=== PATIENT | male | born 1995 | race Caucasian/White ===

== ENCOUNTER 2018-07-21 17:44 | Emergency (ER) | payer OTHER ==
[2018-07-21 18:12] VITALS: O2SAT 100
--- NOTE | 2018-07-21 18:38 | C.PDOC ---
History Of Present Illness 23 y/o M c no PMHx p/w chest pain x 2 days. Pain began while patient was taking calculus exam. Describes as L sided, pinching in character, nonradiating, associated with shortness of breath. Denies fever, nausea, vomiting, cough, hem optysis, diaphoresis, palpitaitons, leg swelling, leg pain, recent travel, hormone use, recent surgery or trauma, prior DVT or PE. Patient states chest pain lasted 3 hours before resolving. Then occurred today while patient was watching TV. No family history of MIs at young age. <Harsh Hebert - Last Filed: 07/21/18 18:35> <Harsh Hebert - Last Filed: 07/21/18 18:35> <Vashti Kay - Last Filed: 07/21/18 20:11> Time Seen by Provider: 07/21/18 18:29 Chief Complaint (Nursing): Chest Pain Past Medical History Vital Signs: Last Vital Signs Temp 98.5 F 07/21/18 17:47 Pulse 91 H 07/21/18 17:47 Resp 20 07/21/18 17:47 BP 153/89 H 07/21/18 17:47 Pulse Ox 100 07/21/18 17:47 Family History: States: No Known Family Hx - Social History Hx Alcohol Use: Yes Hx Substance Use: No - Immunization History Hx Tetanus Toxoid Vaccination: No Hx Influenza Vaccination: No <Harsh Hebert - Last Filed: 07/21/18 18:35> Vital Signs: Last Vital Signs Temp 98.5 F 07/21/18 17:47 Pulse 91 H 07/21/18 17:47 Resp 20 07/21/18 17:47 BP 153/89 H 07/21/18 17:47 Pulse Ox 100 07/21/18 18:40 <Vashti Kay - Last Filed: 07/21/18 20:11> Review Of Systems Except As Marked, All Systems Reviewed And Found Negative. Constitutional: Negative for: Fever Gastrointestinal: Negative for: Vomiting <Harsh Hebert - Last Filed: 07/21/18 18:35> Physical Exam - Physical Exam Additional Physical Exam Comments: Gen: NAD Head: NC/AT Eyes: PERRL ENT: MMM Neck: Supple Chest: No deformity or tenderness CV: Regular rate Lungs: CTA b/l Abd: Soft, NT Back: No CVA tenderness Skin: No rash Extremities: No edema Neuro: Alert <Harsh Hebert - Last Filed: 07/21/18 18:35> ED Course And Treatment O2 Sat by Pulse Oximetry: 100 <Harsh Hebert - Last Filed: 07/21/18 18:35> - Laboratory Results Result Diagrams: 07/21/18 18:50 07/21/18 18:50 <Vashti Kay - Last Filed: 07/21/18 20:11> Medical Decision Making Medical Decision Making: Patient without symptoms currently. PERC negative. EKG NSR 95 bpm, no ST elevations. Will send enzymes x 1 for this pain of over 24 hours duration. Will sign out to ED night team at change of shift. <EmileeHarsh Jacobsen - Last Filed: 07/21/18 18:35> Disposition <EmileeHarsh Jacobsen - Last Filed: 07/21/18 18:35> Counseled Patient/Family Regarding: Diagnosis, Need For Followup, Rx Given - Disposition Disposition Time: 20:10 - POA Present On Arrival: None <Vashti Kay - Last Filed: 07/21/18 20:11> - Disposition Referrals: [facility] [Outside] Disposition: HOME/ ROUTINE Condition: STABLE Additional Instructions: FOLLOW UP WITH YOUR DOCTOR IN 1-2 DAYS USE MEDICATION NEEDED RETURN TO ER IF SYMPTOMS WORSEN Prescriptions: Naproxen 375 mg PO BID PRN #20 tablet PRN Reason: pain Instructions: Chest Pain That Is Not Caused by the Heart (DC) Forms: [employer] (Setswana) Print Language: HAITIAN - Clinical Impression Clinical Impression: Chest wall pain Addendum Addendum: 07/21/18 20:10 Patient resting comfortably, in no acute distress. PO naprosyn given for mild pain. Explained to patient blood work, EKG, CXR are WNL. Patient instructed to follow up with PMD/clinic in 1-2 days. He understands he should return to ED if symptoms worsen. <Vashti Kay - Last Filed: 07/21/18 20:11>
[2018-07-21 18:55] LABS: BASO # 0.1 K/uL (0.0-0.2); BASO % 0.6 % (0.0-2.0); EOS # 0.3 K/uL (0.0-0.7); EOS % 2.1 % (0.0-4.0); LYMPH # 3.9 K/uL (1.0-4.3); LYMPH % 32.7 % (20.0-40.0); MEAN CELL VOLUME 81.9 fL (80.0-94.0); MEAN CORPUSCULAR HEMOGLOBIN 27.7 pg (27.0-31.0); MEAN CORPUSCULAR HGB CONC 33.9 g/dL (33.0-37.0); MEAN PLATELET VOLUME 7.1 fL (7.2-11.7); MONO # 0.6 K/uL (0.0-0.8); MONO % 5.3 % (0.0-10.0); NEUT # 7.2 K/uL (1.8-7.0); NEUT % 59.3 % (50.0-75.0); RBC 6.14 Mil/uL (4.40-5.90); RED CELL DISTRIBUTION WIDTH 12.9 % (11.5-14.5)
[2018-07-21 19:08] LABS: ALB/GLOB RATIO 1.5 (1.0-2.1); ALBUMIN 5.3 g/dL (3.5-5.0); ALT/SGPT 31 U/L (21-72); AST/SGOT 27 U/L (17-59); BLOOD UREA NITROGEN 16 mg/dL (9-20); CALCIUM 9.8 mg/dl (8.6-10.4); GFR NON-AFRICAN AMERICAN > 60
[2018-07-21 19:28] LABS: CK-MB 0.65 ng/mL (0.0-3.38)
[2018-07-21] MEDS ORDERED: Naproxen 550 mg Tab PO STA (20:05)
[2018-07-21] MEDS ORDERED: Naproxen 550 mg Tab PO ONE (20:19)
[2018-07-21 20:27] VITALS: BP 135/79; PULSE 88; RESP 17; TEMP 98.4
--- NOTE | 2018-07-22 15:38 | RAD ---
Date of service: 07/21/2018 HISTORY: L sided ches tpain COMPARISON: No prior. TECHNIQUE: Chest PA and lateral FINDINGS: LUNGS: No active pulmonary disease. PLEURA: No significant pleural effusion identified. No pneumothorax apparent. CARDIOVASCULAR: No aortic atherosclerotic calcification present. Normal cardiac size. No pulmonary vascular congestion. OSSEOUS STRUCTURES: No significant abnormalities. VISUALIZED UPPER ABDOMEN: Normal. OTHER FINDINGS: None. IMPRESSION: No active disease.
--- NOTE | 2018-07-23 20:46 | CARD ---
APPROVED REPORT Date of service: 07/21/2018 EKG Measurement Heart [id number] DC [id number] <Conclusion> Normal sinus rhythm Moderate voltage criteria for LVH, may be normal variant Nonspecific T wave abnormality Abnormal ECG
== END 2018-07-21 20:25 | disposition home or self-care (01) ==
LOC: C.ER 17:44
DX: R07.89 Other chest pain (principal)